=== PATIENT | female | born 1970 | race Caucasian/White ===

== ENCOUNTER 2016-08-23 19:43 | Emergency (ER) | payer BC ==
[2016-08-24] MEDS ORDERED: Ibuprofen TAB* 400 MG PO ONE (01:25)
[2016-08-24] MEDS ORDERED: Amoxicillin CAP* 500 MG PO ONE (01:26)
--- NOTE | 2016-08-24 01:30 | ED ---
Throat Pain/Nasal Congestion - HPI Summary HPI Summary: 46 female presents with complaints of dental pain that began approximately 1 month ago and has seemed to have gotten worse over the past couple of days. Patient states the pain is in her upper right molars. Denies fever/chills, abscess, discharge, redness and swelling. States the pain is coming from a previously fractured tooth. Has tried taking aleve otc, oralgel and ice with little relief. She has been eating and drinking normally. Denies any other complaints at this time. no radiation. has not seen a dentist. - History of Current Complaint Chief Complaint: EDDentalPain Time Seen by Provider: 08/24/16 01:06 Hx Obtained From: Patient Onset/Duration: Gradual Onset, Lasting Weeks, Still Present, Worse Since Severity: Mild - Allergies/Home Medications Allergies/Adverse Reactions: Allergies Allergy/AdvReac Type Severity Reaction Status Date / Time No Known Allergies Allergy Verified 08/24/16 01:31 PMH/Surg Hx/FS Hx/Imm Hx Endocrine/Hematology History: Reports: Hx Diabetes Cardiovascular History: Reports: Hx Hypertension Respiratory History: Denies: Hx Asthma - Cancer History Hx Chemotherapy: No Hx Radiation Therapy: No - Surgical History Surgery Procedure, Year, and Place: n/a - Immunization History Immunizations Up to Date: Yes Infectious Disease History: No Infectious Disease History: Denies: Traveled Outside the [place] in Last 30 Days - Family History Known Family History: Positive: Hypertension - Social History Alcohol Use: Occasionally Hx Substance Use: No Substance Use Type: Reports: None Smoking Status (MU): Never Smoked Tobacco Review of Systems Constitutional: Negative Eyes: Negative Positive: Dental Pain Cardiovascular: Negative Respiratory: Negative Gastrointestinal: Negative Musculoskeletal: Negative Skin: Negative Neurological: Negative Psychological: Normal All Other Systems Reviewed And Are Negative: Yes Physical Exam Triage Information Reviewed: Yes Vital Signs On Initial Exam: Initial Vitals Temp Pulse Resp BP Pulse Ox 98.3 F 88 18 174/88 97 08/23/16 20:10 08/23/16 20:10 08/23/16 20:10 08/23/16 20:10 08/23/16 20:10 elevated blood pressure noted. re-checked and was lower however patient states she has HTN but has not taken her medication due to not refilling her prescription. plans on filling it tomorrow. Vital Signs Reviewed: Yes Appearance: Positive: Well-Appearing - sitting in chair eating chips, No Pain Distress, Well-Nourished Skin: Positive: Warm, Skin Color Reflects Adequate Perfusion, Dry Head/Face: Positive: Normal Head/Face Inspection Eyes: Positive: Normal, Conjunctiva Clear ENT: Positive: Normal ENT inspection, Hearing grossly normal, Pharynx normal, TMs normal, Dental tenderness - right back molars. Negative: Tonsillar swelling , Tonsillar exudate, Trismus, Muffled/hoarse voice Dental: Positive: Gross Decay/Caries @, Dental Fracture @ - back right molars tooth #1. Negative: Abscess @, Cellulitis @, Bleeding, Foreign body Neck: Positive: Supple, Nontender, No Lymphadenopathy Respiratory/Lung Sounds: Positive: Clear to Auscultation, Breath Sounds Present Cardiovascular: Positive: Normal, RRR, Pulses are Symmetrical in both Upper and Lower Extremities Musculoskeletal: Positive: Normal, Strength/ROM Intact Neurological: Positive: Normal, Sensory/Motor Intact, Alert, Oriented to Person Place, Time Diagnostics - Vital Signs Vital Signs Temp Pulse Resp BP Pulse Ox 08/23/16 20:10 98.3 F 88 18 174/88 97 - Laboratory Lab Statement: Any lab studies that have been ordered have been reviewed, and results considered in the medical decision making process. EENT Course/Dx - Course Course Of Treatment: no evidence of abscess noted. ibuprofen, lolicane and amoxicillin given. will be given lollicane to take home along with prescription of ibuprofen and amoxicillin to take. encouraged to make sure she goes to her dentist appointment next week to have the problem solved and to prevent further complications. aware of worsening signs and symptoms such as dental abscess, bleeding, difficulty breathing, fever and chills. - Differential Diagnoses Differential Diagnoses: Dental Abscess, Dental Caries, Fractured Tooth, Pharyngitis, Other - Diagnoses Provider Diagnoses: Fractured tooth Discharge - Discharge Plan Condition: Stable Disposition: HOME Prescriptions: Amoxicillin CAP* [Amoxicillin 500 MG CAP*] 500 mg PO Q12H #19 cap Ibuprofen TAB* [Motrin TAB* 800 MG] 800 mg PO Q6H PRN #30 tab PRN Reason: Pain Patient Education Materials: Toothache (ED), Dental Caries (ED) Referrals: Abril Giraldo NP [Primary Care Provider] - Additional Instructions: Take prescribed medication as directed for the next 10 days. Make sure to go to your dentist appointment next week to solve the problem. Continue oralgel and lolicaine and salt water soaks. Heat/Ice. Eat soft foods. If you develop fever/ chills, redness, swelling, discharge please seek medical attention promptly.
[2016-08-24] MEDS ORDERED: Ibuprofen TAB* 400 MG ONE (01:38)
[2016-08-24 01:47] VITALS: BP 167/80
== END 2016-08-24 01:45 | disposition home or self-care (01) ==
LOC: ED 19:43
DX: S02.5XXA Fracture of tooth (traumatic), initial encounter for closed fracture (principal); X58.XXXA Exposure to other specified factors, initial encounter; Y93.9 Activity, unspecified; Y92.9 Unspecified place or not applicable; K08.89 Other specified disorders of teeth and supporting structures
CPT/HCPCS: 99282; A9270-GY

== ENCOUNTER 2019-08-01 19:18 | Emergency (ER) | payer BC ==
[2019-08-01 19:23] VITALS: BP 151/103
--- NOTE | 2019-08-01 20:21 | ED ---
Throat Pain/Nasal Congestion - HPI Summary HPI Summary: 49-year-old female presents to the emergency department today complaining of one day of nasal congestion and sinus pressure. Patient denies associated fever , and probiotic use in the last 30 days, shortness of breath, cough, headache. Patient states she has taken ibuprofen prior to arrival for alleviation of her symptoms. The patient otherwise feels well and denies fever, chest pain, abdominal pain. Urination, rash, nausea, vomiting, diarrhea. Surgical history and family history is noncontributory - History of Current Complaint Chief Complaint: EDGeneral Time Seen by Provider: 08/01/19 19:48 Hx Obtained From: Patient Onset/Duration: Gradual Onset, Lasting Days Severity: Moderate Cough: Nonproductive - Allergies/Home Medications Allergies/Adverse Reactions: Allergies Allergy/AdvReac Type Severity Reaction Status Date / Time No Known Allergies Allergy Verified 08/01/19 19:20 Home Medications: Home Medications Fluticasone NASAL SPRAY 50MCG* [Flonase NASAL SPRAY 50MCG*] 2 spray BOTH NARES DAILY #1 btl 08/01/19 [Rx] PMH/Surg Hx/FS Hx/Imm Hx Endocrine/Hematology History: Reports: Hx Diabetes Cardiovascular History: Reports: Hx Hypertension Respiratory History: Denies: Hx Asthma - Cancer History Hx Chemotherapy: No Hx Radiation Therapy: No - Surgical History Surgery Procedure, Year, and Place: n/a - Immunization History Date of Influenza Vaccine: 02/2019 Infectious Disease History: No Infectious Disease History: Denies: Traveled Outside the [place] in Last 30 Days - Family History Known Family History: Positive: Hypertension - Social History Alcohol Use: Occasionally Hx Substance Use: No Substance Use Type: Reports: None Smoking Status (MU): Never Smoked Tobacco Review of Systems Constitutional: Negative Eyes: Negative Positive: Nasal Discharge Cardiovascular: Negative Positive: Cough. Negative: Shortness Of Breath Gastrointestinal: Negative Genitourinary: Negative Musculoskeletal: Negative Skin: Negative Neurological/Mental Status: Negative Psychological: Normal All Other Systems Reviewed And Are Negative: Yes Physical Exam - Summary Physical Exam Summary: Patient is no acute distress. There is evidence of postnasal drip. Patient has tenderness to percussion of the frontal sinuses. Triage Information Reviewed: Yes Vital Signs On Initial Exam: Initial Vitals Temp Pulse Resp BP Pulse Ox 97.7 F 90 18 151/103 98 08/01/19 19:20 08/01/19 19:20 08/01/19 19:20 08/01/19 19:20 08/01/19 19:20 Vital Signs Reviewed: Yes Appearance: Positive: Well-Appearing, No Pain Distress, Well-Nourished Skin: Positive: Warm, Skin Color Reflects Adequate Perfusion Eyes: Positive: EOMI, SH[place] ENT: Positive: Hearing grossly normal Respiratory/Lung Sounds: Positive: Clear to Auscultation, Breath Sounds Present Cardiovascular: Positive: RRR, S1, S2 Abdomen Description: Positive: Nontender, Soft Musculoskeletal: Positive: Strength/ROM Intact Neurological: Positive: Sensory/Motor Intact, Alert, Oriented to Person Place, Time, Normal Gait, Facial Symmetry, Speech Normal Psychiatric: Positive: Normal, Affect/Mood Appropriate AVPU Assessment: Alert Procedures - Sedation Patient Received Moderate/Deep Sedation with Procedure: No Diagnostics - Vital Signs Vital Signs Temp Pulse Resp BP Pulse Ox 08/01/19 19:20 97.7 F 90 18 151/103 98 - Laboratory Lab Statement: Any lab studies that have been ordered have been reviewed, and results considered in the medical decision making process. EENT Course/Dx - Course Course Of Treatment: Patient was evaluated in emergency department today for sinus congestion. Vitals noted and stable. Patient afebrile. Patient has been symptomatic for 2 days and is likely suffering from viral sinusitis. Patient given prescription for Flonase and told to increase by mouth fluid intake. Vision instructed to follow up with primary care provider in 7-10 days if her symptoms persist for possible antibiotic therapy. Patient discharged with outpatient follow-up. - Differential Diagnoses Differential Diagnoses: Allergic Rhinitis, Conjunctivitis, Sinusitis - Diagnoses Provider Diagnoses: Sinusitis Discharge ED - Sign-Out/Discharge Documenting (check all that apply): Patient Departure - Discharge Plan Condition: Stable Disposition: HOME Prescriptions: Fluticasone NASAL SPRAY 50MCG* [Flonase NASAL SPRAY 50MCG*] 2 spray BOTH NARES DAILY #1 btl Patient Education Materials: Sinusitis (ED) Referrals: Loly Bettencourt NP [Primary Care Provider] - 3 Days Additional Instructions: Please use Flonase 2 sprays per nostril daily. Please increase intake of water. Please use NyQuil at night. If your symptoms persist for greater than 10 days please follow up with your primary care provider for further evaluation and management. Please return to the emergency department immediately if you develop any new or worsening symptoms. - Billing Disposition and Condition Condition: STABLE Disposition: Home
== END 2019-08-01 20:29 | disposition home or self-care (01) ==
LOC: ED 19:18
DX: J32.9 Chronic sinusitis, unspecified (principal); E11.9 Type 2 diabetes mellitus without complications; I10 Essential (primary) hypertension
CPT/HCPCS: 99282